=== PATIENT | female | born 1985 | race Caucasian/White ===

== ENCOUNTER 2017-05-23 16:39 | Emergency (ER) | payer OTHER ==
[2017-05-23 18:19] VITALS: BP 114/60
--- NOTE | 2017-05-23 19:19 | UC ---
Complaint Female HPI - HPI Summary HPI Summary: 1) TWO DAYS OF URINARY FREQUENCY, DISCOMFORT WITH URINATION. NO FEVER. NO BACK PAIN. NO ABDOMINAL PAIN. 2) THREE WEEKS OF RED SCALING RASH SURROUNDING MOUTH. NO STREOID USE. HAS BEEN USING BLISTEX WITH NO IMPROVEMENT. - History Of Current Complaint Chief Complaint: [facility] Stated Complaint: MOUTH/SKIN COMPLAINT,URINARY Time Seen by Provider: 05/23/17 18:55 Hx Obtained From: Patient Hx Last Menstrual Period: 05/14/17 Onset/Duration: Gradual Onset, Lasting Days, Lasting Weeks Timing: Intermittent Severity Initially: Mild Severity Currently: Moderate Character: Dull Aggravating Factor(s): Urination Associated Signs And Symptoms: Negative: Fever, Back Pain, Vaginal Bleeding/ Discharge, Vaginal Discharge, Nausea, Vomiting(# Of Episodes =) - Risk Factors Ectopic Risk Factor: Negative - Allergies/Home Medications Allergies/Adverse Reactions: Allergies Allergy/AdvReac Type Severity Reaction Status Date / Time Aspirin Allergy Intermediate hives / Verified 05/07/16 07:25 swelling Gluten Meal Allergy GI Upset Verified 05/23/17 18:19 PMH/Surg Hx/FS Hx/Imm Hx Previously Healthy: Yes Other History Of: Negative For: HIV, Hepatitis B, Hepatitis C, Anticoagulant Therapy - Surgical History Surgical History: None - Family History Known Family History: Positive: Respiratory Disease - no asthma Negative: Cardiac Disease, Hypertension, Renal Disease - Social History Occupation: Employed Full-time Lives: With Family Alcohol Use: Occasionally Substance Use Type: None Smoking Status (MU): Never Smoked Tobacco Review of Systems Constitutional: Negative Skin: Rash - PERIORAL Eyes: Negative ENT: Negative Respiratory: Negative Cardiovascular: Negative Gastrointestinal: Negative Genitourinary: Dysuria, Hematuria, Frequency, Urgency Motor: Negative Neurovascular: Negative Musculoskeletal: Negative Neurological: Negative Psychological: Negative Is Patient Immunocompromised?: No All Other Systems Reviewed And Are Negative: Yes Physical Exam Triage Information Reviewed: Yes Appearance: Well-Appearing, No Pain Distress, Well-Nourished Vital Signs: Initial Vital Signs Temp 98.2 F 05/23/17 18:16 Pulse 64 05/23/17 18:16 Resp 14 05/23/17 18:16 BP 114/60 05/23/17 18:16 Pulse Ox 100 05/23/17 18:16 Vital Signs Reviewed: Yes Eye Exam: Normal ENT Exam: Normal ENT: Positive: Normal ENT inspection Dental Exam: Normal Neck exam: Normal Neck: Positive: Supple, Nontender, No Lymphadenopathy Respiratory Exam: Normal Respiratory: Positive: Chest non-tender, Lungs clear, Normal breath sounds, No respiratory distress, No accessory muscle use Cardiovascular Exam: Normal Cardiovascular: Positive: RRR, No Murmur, Pulses Normal Abdominal Exam: Normal Abdomen Description: Positive: Nontender, No Organomegaly, Soft. Negative: CVA Tenderness (R), CVA Tenderness (L) Musculoskeletal Exam: Normal Neurological Exam: Normal Psychological Exam: Normal Skin: Positive: rashes - ERETHEMATOUS SCALING PERIORAL RASH Complaint Female Dx - Differential Dx/Diagnosis Differential Diagnosis/HQI/PQRI: Urinary Tract Infection, Other - PERIORAL DERMATITIS Provider Diagnoses: URINARY TRACT INFECTION; PERIORAL DERMATITIS Discharge - Discharge Plan Condition: Stable Disposition: HOME Prescriptions: Erythromycin TOPICAL GEL* [Erythromycin OPTH OINT*] 1 applic TOPICAL TID #1 tube Phenazopyridine TAB* [Pyridium 100 mg TAB*] 100 mg PO TID PRN #15 tab PRN Reason: Pain Sulfamethox/Trimethoprim DS* [Bactrim DS 800/160 TAB*] 1 tab PO BID #10 tab Patient Education Materials: Urinary Tract Infection in Women (ED), Dermatitis (ED) Referrals: Sravani Banks MD [Primary Care Provider] -
== END 2017-05-23 19:20 | disposition home or self-care (01) ==
LOC: UCCORT 16:39
DX: N39.0 Urinary tract infection, site not specified (principal); B96.20 Unspecified Escherichia coli [E. coli] as the cause of diseases classified elsewhere; R31.9 Hematuria, unspecified; L71.0 Perioral dermatitis; Z88.6 Allergy status to analgesic agent
CPT/HCPCS: 81003; 87077; 87086; 87186; 99212; G0463